=== PATIENT | male | born 1995 | race Two or more races ===

== ENCOUNTER 2017-05-08 14:08 | Emergency (ER) | payer MEDICAID ==
[~2017-05-08] VITALS: Ht 182.9 cm; Wt 104.0 kg
[2017-05-08] MEDS ORDERED: DOCU-150 PO (14:34)
[2017-05-08] MEDS ORDERED: ARIP20TA2 GT (14:34)
[2017-05-08] MEDS ORDERED: FLUO-124 PO (14:34)
[2017-05-08] MEDS ORDERED: ERGO400C PO (14:34)
[2017-05-08] MEDS ORDERED: TRAZ-129 PO (14:34)
[2017-05-08] MEDS ORDERED: LURA40TA PO (14:34)
[2017-05-08 19:11] VITALS: BP 122/55
== END 2017-05-08 19:28 | disposition home or self-care (01) ==
LOC: ER 14:57
DX: S03.2XXA Dislocation of tooth, initial encounter (principal); S09.8XXA Other specified injuries of head, initial encounter; F20.9 Schizophrenia, unspecified; W17.89XA Other fall from one level to another, initial encounter; Y93.89 Activity, other specified; Y92.89 Other specified places as the place of occurrence of the external cause; Y99.8 Other external cause status
CPT/HCPCS: 70450; 70486; 99284

== ENCOUNTER 2017-08-07 17:19 | Emergency (ER) | payer MEDICAID ==
[~2017-08-07] VITALS: Ht 177.8 cm; Wt 111.0 kg
[~2017-08-07 17:19] MED LIST: ARIP20TA2 GT; DOCU-150 PO; ERGO400C PO; FLUO-124 PO; LURA40TA PO; TRAZ-129 PO
[2017-08-07 17:24] VITALS: BP 119/73
== END 2017-08-07 19:00 | disposition left against medical advice (07) ==
LOC: ER 17:55
DX: Z53.21 Procedure and treatment not carried out due to patient leaving prior to being seen by health care provider (principal)

== ENCOUNTER 2021-07-23 20:42 | Emergency (ER) | payer MEDICAID ==
[~2021-07-23] VITALS: Ht 188 cm; Wt 107.0 kg
[~2021-07-23 20:42] MED LIST changes: -FLUO-124 PO; +FLUO20CA39 PO; -TRAZ-129 PO; +TRAZ-251 PO
[2021-07-23] MEDS ORDERED: FAMOTIDINE 20MG TABLET PO ONE (21:45)
[2021-07-23] MEDS ORDERED: DIPHENHYDRAMINE 25MG CAPSULE PO ONE (21:45)
[2021-07-23] MEDS ORDERED: PREDNISONE 20MG TABLET PO ONE (21:45)
[2021-07-24 00:22] VITALS: BP 121/75
== END 2021-07-24 00:23 | disposition home or self-care (01) ==
LOC: ER 20:42
DX: T78.1XXA Other adverse food reactions, not elsewhere classified, initial encounter (principal); R22.0 Localized swelling, mass and lump, head; Y93.89 Activity, other specified; X58.XXXA Exposure to other specified factors, initial encounter; Y92.89 Other specified places as the place of occurrence of the external cause
CPT/HCPCS: 99284; J7512; Q0163